=== PATIENT | male | born 1990 | race African-American/Black ===

== ENCOUNTER 2018-08-30 08:35 | Day surgery (SDC) | payer OTHER ==
[2018-08-29 16:59] LABS: Potassium 4.1 mmol/L (3.5-5.1)
[2018-08-29 17:08] LABS: Absolute Lymphocytes (CBC) 2.6 K/uL (0.7-4.9); Basophils % 0.9 % (0-1.3); Eosinophils % 3.1 % (0-4.4); Lymphocytes % 48.6 % (15.3-44.8); MPV 7.5 fL (7.6-11.3); Monocytes % 11.8 % (3.3-12.3); RBC Red Blood Cell Count 4.86 M/uL (4.33-5.43)
[2018-08-30] MEDS ORDERED: Ringers Lactate 1,000 ML IV ONE (09:05)
--- OUTSIDE RECORDS SUMMARY | 2018-08-30 09:13 | XMS REPORT | Clinical Summary ---
:1990 Author Organization [facility] Address [address] [place] [address] Care Team Providers Name Role Phone Asked, No Pcp Primary Care Provider Unavailable Allergies No Known Allergies Medications Medication Sig Dispensed Refills Start End Date Status Date darunavir/cobicistat Take by mouth 0 Active (PREZCOBIX ORAL) daily. mesalamine (PENTASA) Take 250 mg by 0 Active 250 mg CR capsule mouth 4 (four) times a day. predniSONE Take 1 tablet 30 tablet 0 09/06/19 Active (DELTASONE) 20 mg (20 mg total) 9 19 tablet by mouth daily for 30 days. acetaminophen-codein Take 1-2 15 tablet 0 08/31/19 e (TYLENOL WITH tablets by 8 18 CODEINE #3) 300-30 mouth every 6 mg per tablet (six) hours as needed for moderate pain for up to 5 days. cyclobenzaprine Take 1 tablet 20 tablet 0 09/25/19 (FLEXERIL) 10 mg (10 mg total) 8 18 tablet by mouth 2 (two) times a day as needed for muscle spasms for up to 30 days. predniSONE Take 2 tablets 28 tablet 0 01/27/20 (DELTASONE) 20 mg (40 mg total) 8 18 tablet by mouth daily for 14 days. mesalamine (PENTASA) Take 500 mg by 0 01/12/20 Discontinued 250 mg CR capsule mouth 4 (four) 18 times a day. Info obtained from Kat GRAY from Dr. Anthony's office, patient's GI doctor who prescribed this medication FINANCIAL ANALYST. mesalamine (PENTASA) Take 500 mg by 0 10/25/20 Discontinued 500 MG CR capsule mouth 4 (four) 18 times a day. Info obtained from Kat GRAY from Dr. Anthony's office, phone # [phone], patient's GI doctor who prescribed this medication FINANCIAL ANALYST. mesalamine (PENTASA) Take 1 capsule 120 capsule 0 01/13/20 Discontinued 500 MG CR capsule (500 mg total) 8 18 by mouth 4 (four) times a day for 30 days. mesalamine (PENTASA) Take 4 capsules 240 capsule 0 02/12/20 500 MG CR capsule (2,000 mg 8 18 total) by mouth 2 (two) times a day for 30 days. valACYclovir Take 1 tablet 21 tablet 0 08/06/19 Discontinued (VALTREX) 1000 MG (1,000 mg 9 19 tablet total) by mouth 3 (three) times a day for 7 days. predniSONE Take 30 mg 35 tablet 0 08/06/19 Discontinued (DELTASONE) 10 mg orally bid for 9 tablet days 1-7 then 15 mg bid for days 8-14, then 5 mg on days 15-21. acetaminophen-codein Take 1 tablet 20 tablet 0 07/31/19 e (TYLENOL WITH by mouth every 12 07 CODEINE #3) 300-30 6 (six) hours mg per tablet as needed for moderate pain for up to 5 days. valACYclovir Take 1 tablet 21 tablet 0 08/13/19 (VALTREX) 1000 MG (1,000 mg 9 19 tablet total) by mouth 3 (three) times a day for 7 days. Active Problems Problem Noted Date Abdominal pain 01/10/2018 Encounters Date Type Specialty Care Team Description 08/02/2018 - Emergency General Internal Rosalba Stoner Abdominal pain, 08/04/2018 Medicine MD Cindy vomiting, and diarrhea Diana Naidu, (Primary Dx) 07/25/2018 Emergency Emergency Medicine Jackie Montejo Herpes zoster without MD Mckenzie complication (Primary Dx) 07/25/2018 Travel 05/17/2018 Emergency Emergency Medicine Souleymane Jones Myalgia ( Primary Dx); MD MAGDI Fever, unspecified fever cause 03/30/2018 Emergency Emergency Medicine Nancy Davenport, Contusion of right DO index finger without damage to nail, initial encounter (Primary Dx) 01/10/2018 - Emergency General Internal PierceThomas, Abdominal pain, 01/12/2018 Medicine MD unspecified abdominal Korimilli, Luis Carlos, location (Primary Dx) Kathleen Mckeon MD 09/26/2017 Emergency Emergency Medicine Braeden Stark Sprain of carpal joint MD Efren of left wrist, initial encounter (Primary Dx) after 08/29/2017 Family History Medical History Relation Name Comments Crohn's disease Mother Hypertension Mother Relation Name Status Comments Mother Alive Crohn's Sister Alive crohn's Social History Tobacco Use Types Packs/Day Years Used Date Never Smoker Smokeless Tobacco: Never Used Alcohol Use Drinks/Week oz/Week Comments Yes 4 Standard drinks or equivalent 2.4 2 x per week Sex Assigned at Date Recorded Not on file Job Start Date Occupation Industry Not on file Not on file Not on file Travel History Travel Start Travel End No recent travel history available. Last Filed Vital Signs Vital Sign Reading Time Taken Blood Pressure 139/79 08/05/2018 11:45 AM CDT Pulse 73 08/05/2018 11:45 AM CDT Temperature 36.6 C (97.8 F) 08/05/2018 11:45 AM CDT Respiratory Rate 16 08/05/2018 11:45 AM CDT Oxygen Saturation 97% 08/05/2018 11:45 AM CDT Inhaled Oxygen Concentration - - Weight 59 kg (130 lb) 07/25/2018 11:09 AM CDT Height 172.7 cm (5' 8") 08/02/2018 12:55 PM CDT Body Mass Index 19.2 07/25/2018 11:09 AM CDT Plan of Treatment Health Maintenance Due Date Last Done Comments INFLUENZA VACCINE 10/19/2018 Procedures Procedure Name Priority Date/Time Associated Comments Diagnosis MANUAL DIFFERENTIAL Routine 08/05/2018 2:51 Results for this AM CDT procedure are in the results section. ESTIMATED GFR Routine 08/05/2018 2:51 Results for this AM CDT procedure are in the results section. CBC WITH PLATELET AND Routine 08/05/2018 2:51 Results for this DIFFERENTIAL AM CDT procedure are in the results section. BASIC METABOLIC PANEL Routine 08/05/2018 2:51 Results for this AM CDT procedure are in the results section. ESTIMATED GFR Routine 08/04/2018 12:41 Results for this AM CDT procedure are in the results section. BASIC METABOLIC PANEL Routine 08/04/2018 12:41 Results for this AM CDT procedure are in the results section. HC COMPLETE BLD COUNT Routine 08/04/2018 12:41 Results for this W/AUTO DIFF AM CDT procedure are in the results section. CT ABDOMEN PELVIS W STAT 08/02/2018 6:03 Results for this CONTRAST PM CDT procedure are in the results section. ESTIMATED GFR STAT 08/02/2018 5:00 Results for this PM CDT procedure are in the results section. CD 4 SUBSET Routine 08/02/2018 5:00 Results for this PM CDT procedure are in the results section. LIPASE LEVEL STAT 08/02/2018 5:00 Results for this PM CDT procedure are in the results section. MAGNESIUM LEVEL STAT 08/02/2018 5:00 Results for this PM CDT procedure are in the results section. COMPREHENSIVE STAT 08/02/2018 5:00 Results for this METABOLIC PANEL PM CDT procedure are in the results section. HC COMPLETE BLD COUNT STAT 08/02/2018 5:00 Results for this W/AUTO DIFF PM CDT procedure are in the results section. URINALYSIS SCREEN AND Routine 05/17/2018 3:07 Results for this MICROSCOPY, WITH PM [employer]IC[employer] procedure are in REFLEX TO CULTURE the results section. RESPIRATORY PATHOGEN Routine 05/17/2018 3:07 Results for this PANEL PM [employer] procedure are in the results section. INFLUENZA ANTIGEN Routine 05/17/2018 3:07 Results for this TEST, REFLEX NEGATIVE PM [employer] procedure are in TO RPP the results section. XR CHEST 2 VW STAT 05/17/2018 3:06 Results for this PM [employer] procedure are in the results section. URINE CULTURE Routine 05/17/2018 3:04 Results for this PM [employer] procedure are in the results section. ECG 12-LEAD STAT 05/17/2018 2:36 Results for this PM [employer] procedure are in the results section. ESTIMATED GFR STAT 05/17/2018 2:27 Results for this PM [employer] procedure are in the results section. HC COMPLETE BLD COUNT STAT 05/17/2018 2:27 Results for this W/AUTO DIFF PM [employer] procedure are in the results section. COMPREHENSIVE STAT 05/17/2018 2:27 Results for this METABOLIC PANEL PM [employer] procedure are in the results section. XR FINGER 2+ VW RIGHT STAT 03/30/2018 4:25 Results for this PM [employer] procedure are in the results section. C-REACTIVE PROTEIN Routine 01/11/2018 12:00 Results for this PM CDT procedure are in the results section. SEDIMENTATION RATE Routine 01/11/2018 12:00 Results for this PM CDT procedure are in the results section. MANUAL DIFFERENTIAL Routine 01/11/2018 5:17 Results for this AM CDT procedure are in the results section. ESTIMATED GFR Routine 01/11/2018 5:17 Results for this AM CDT procedure are in the results section. LIPASE LEVEL Routine 01/11/2018 5:17 Results for this AM CDT procedure are in the results section. COMPREHENSIVE Routine 01/11/2018 5:17 Results for this METABOLIC PANEL AM CDT procedure are in the results section. CBC WITH PLATELET AND Routine 01/11/2018 5:17 Results for this DIFFERENTIAL AM CDT procedure are in the results section. CT ABDOMEN PELVIS W STAT 01/10/2018 7:34 Results for this CONTRAST PM CDT procedure are in the results section. ESTIMATED GFR STAT 01/10/2018 6:22 Results for this PM CDT procedure are in the results section. URINALYSIS SCREEN AND Routine 01/10/2018 6:22 Results for this MICROSCOPY, WITH PM CDT procedure are in REFLEX TO CULTURE the results section. LIPASE LEVEL STAT 01/10/2018 6:22 Results for this PM CDT procedure are in the results section. COMPREHENSIVE STAT 01/10/2018 6:22 Results for this METABOLIC PANEL PM CDT procedure are in the results section. HC COMPLETE BLD COUNT STAT 01/10/2018 6:22 Results for this W/AUTO DIFF PM CDT procedure are in the results section. URINE CULTURE Routine 01/10/2018 6:22 Results for this PM CDT procedure are in the results section. XR WRIST 3+ VW LEFT STAT 09/26/2017 10:13 Results for this AM CDT procedure are in the results section. XR FOREARM 2 VW LEFT STAT 09/26/2017 10:13 Results for this AM CDT procedure are in the results section. after 08/29/2017 Results Estimated GFR (08/05/2018 2:51 AM CDT)Only the most recent of6 resultswithin the time period is included. Estimated GFR >=90 mL/min/1.73 [facility] Comment: m2 [place] CatergoryUnitsInterpretation [facility]OSPITAL G1 >=90 Normal or high G2 60-89Mildly decreased [id number] to moderately decreased X5e42-21Qjoycmjocl to severely decreased G4 15-29Severely decreased G5 <15Kidney failure The eGFR was calculated using the Chronic Kidney Disease Epidemiology Collaboration (CKD-EPI) equation. Interpretation is based on recommendations of the National Kidney Foundation-Kidney Disease Outcomes Quality Initiative (NKF-KDOQI) published in 2014. Specimen Plasma specimen Performing Organization Address City/[facility] Cent[facility]ode Phone Number [facility] [id number] [place] [address] Manual differential (08/05/2018 2:51 AM CDT)Only the most recent of2 resultswithin the time period is included. Manual differential PERFORMED [facility] Neutrophils 69.0 39.0 - 69.0 % [facility] Lymphocytes 22.0 (L) 25.0 - 45.0 % [facility] Monocytes 10.0 0.0 - 10.0 % [facility] Eosinophils 0.0 0.0 - 5.0 % [facility] Basophils 0.0 0.0 - 1.0 % [facility] Reactive lymphocytes Few [facility] Platelet slide review Lewis adequate [facility] Toxic granulation Slight [facility] Enlarged platelets Moderate (A) [facility] Smudge cells Few [facility] Giant platelets Occasional [facility] Specimen Performing Organization Address [facility] Centercode Phone Number [facility] [id number] [place] [address] CBC with platelet and differential (08/05/2018 2:51 AM CDT)Only the most recent of6 resultswithin the time period is included. WBC 10.3 4.5 - 11.0 k/uL [facility] RBC 4.18 (L) 4.40 - 6.00 m/uL [facility] HGB 11.8 (L) 14.0 - 18.0 g/dL [facility] HCT 36.2 (L) 41.0 - 51.0 % [facility] MCV 86.6 82.0 - 100.0 fL [facility] MCH 28.2 27.0 - 34.0 pg [facility] MCHC 32.6 31.0 - 37.0 g/dL [facility] RDW - SD 43.4 37.0 - 55.0 fL [facility] MPV 9.0 6.9 - 11.0 fL [facility] Platelet count 291 150 - 400 K/uL [facility] Nucleated RBC 0.00 /100 WBC [facility] Neutrophils 69.0 39.0 - 69.0 % [facility] Lymphocytes 22.0 (L) 25.0 - 45.0 % [facility] Monocytes 10.0 0.0 - 10.0 % [facility] Eosinophils 0.0 0.0 - 5.0 % [facility] Basophils 0.0 0.0 - 1.0 % [facility] Specimen Blood Performing Organization Address City/State/Zipcode Phone Number [facility] [address] [place] [address] AND GENOMIC MEDICINE [facility] [address] [place] [address] HOSPITAL Basic metabolic panel (08/05/2018 2:51 AM CDT)Only the most recent of2 resultswithin the time period is included. Sodium 143 135 - 148 mEq/L [facility] Potassium 4.1 3.5 - 5.0 mEq/L [facility] Chloride 106 98 - 112 mEq/L [facility] CO2 30 24 - 31 mEq/L [facility] Anion gap 7@ANIO 7 - 15 mEq/L [facility] BUN 9 6 - 20 mg/dL [facility] Creatinine 0.66 (L) 0.70 - 1.20 mg/dL [facility] Glucose 146 (H) 65 - 99 mg/dL [facility] Calcium 8.6 8.3 - 10.2 mg/dL [facility] Specimen Plasma specimen Performing Organization Address City/State/Zipcode Phone Number [facility] [address] [place] [address] AND [facility]OMIC MEDICINE [facility] [address] Abdomen Pelvis W Contrast (08/02/2018 6:03 PM CDT)Only the most recent of2 resultswithin the time period is included. Specimen Narrative Performed At EXAMINATION:CT ABDOMEN PELVIS W [facility]AST [facility] CLINICAL HISTORY:RLQ abd painvomitingbloody diarrhea. Hx Crohn's TECHNIQUE: Multiple axial images of the abdomen and pelvis were obtained following intravenous administration of iodinated contrast. Sagittal and coronal computerized reformatted images were also obtained.Automatic exposure control and iterative reconstruction techniques used to reduce dose. COMPARISON:None. FINDINGS: The liver, spleen, pancreas, adrenals and kidneys are within normal limits. The gallbladder has been removed. No intra or extrahepatic ductal dilatation is present The small bowel is unremarkable No evidence of appendicitis Large amount retained stool in colon, constipation is suspected IMPRESSION: No evidence of appendicitis Large amount retained stool in colon, constipation is suspected [id number] Procedure Note Hm Interface, Radiology Results Incoming - 08/02/2018 6:13 PM CDT EXAMINATION: CT ABDOMEN PELVIS W CONTRAST CLINICAL HISTORY: RLQ abd pain vomiting bloody diarrhea. Hx Crohn's TECHNIQUE: Multiple axial images of the abdomen and pelvis were obtained following intravenous administration of iodinated contrast. Sagittal and coronal computerized reformatted images were also obtained.Automatic exposure control and iterative reconstruction techniques used to reduce dose. COMPARISON: None. FINDINGS: The liver, spleen, pancreas, adrenals and kidneys are within normal limits. The gallbladder has been removed. No intra or extrahepatic ductal dilatation is present The small bowel is unremarkable No evidence of appendicitis Large amount retained stool in colon, constipation is suspected IMPRESSION: No evidence of appendicitis Large amount retained stool in colon, constipation is suspected [id number] Performing Organization Address City/State/Zipcode Phone Number [facility] [address] [place] [address] CD 4 subset (08/02/2018 5:00 PM CDT) CD4% 20 (L) 37 - 57 % [facility] CD4 absolute count 666 488 - 1,340 ul [facility] CD4 subset See link below [facility] for PDF Lab HOSPITAL ReportComment: Specimen Blood Performing Organization Address City/State/Zipcode Phone Number [facility] DEPARTMENT OF PATHOLOGY AND [address] [place] [address] [facility] [address] [place] [address] [facility] Magnesium level (08/02/2018 5:00 PM CDT) Magnesium 2.0 1.6 - 2.6 mg/dL [facility] Specimen Plasma specimen Performing Organization Address City/[facility]/Zipcode Phone Number [facility] [id number] [place] [address] Lipase level (08/02/2018 5:00 PM CDT)Only the most recent of3 resultswithin the time period is included. Lipase 70 (H) 13 - 60 U/L [facility] Specimen Plasma specimen Performing Organization Address City/[facility]/Zipcode Phone Number [facility] [phone] [place] [address] Comprehensive metabolic panel (08/02/2018 5:00 PM CDT)Only the most recent of4 resultswithin the time period is included. Sodium 138 135 - 148 mEq/L [facility] Potassium 4.2 3.5 - 5.0 mEq/L [facility] Chloride 101 98 - 112 mEq/L [facility] CO2 29 24 - 31 mEq/L [facility] Anion gap 8@ANIO 7 - 15 mEq/L [facility] BUN 7 6 - 20 mg/dL [facility] Creatinine 0.77 0.70 - 1.20 [facility] mg/dL [facility] Glucose 95 65 - 99 mg/dL [facility] Calcium 9.0 8.3 - 10.2 mg/dL [facility] Protein 9.0 (H) 6.3 - 8.3 g/dL [facility] Albumin 4.4 3.5 - 5.0 g/dL [facility] A/G ratio 1.0 0.7 - 3.8 [facility] Alkaline phosphatase 78 40 - 129 U/L [facility] AST 23 10 - 50 U/L [facility] ALT 27 5 - 50 U/L [facility] Total bilirubin 0.3 0.2 - 1.2 mg/dL [facility] Specimen Plasma specimen Performing Organization Address City/[facility]/Zipcode Phone Number [facility] [address] [place] [address] AND [facility] [id number] [place] [address] HOSPITAL Respiratory pathogen panel (05/17/2018 3:07 PM [employer]) [facility] Respiratory Negative for all pathogens tested: ONA pathogen panel Negative for Adenovirus [facility] Negative for Coronavirus HKU1 [facility] Negative for Coronavirus NL63 Negative for Coronavirus 229E Negative for Coronavirus OC43 Negative for Human Metapneumovirus Negative for Rhinovirus/Enterovirus Negative for Influenza A Negative for Influenza A/H1 Negative for Influenza A/H3 Negative for Influenza A/H1-2009 Negative for Influenza B Negative for Parainfluenza Virus 1 Negative for Parainfluenza Virus 2 Negative for Parainfluenza Virus 3 Negative for Parainfluenza Virus 4 Negative for Respiratory Syncytial Virus Negative for Bordetella pertussis Negative for Chlamydophila pneumoniae Negative for Mycoplasma pneumoniae This real-time PCR assay detects the presence of nucleic acids (RNA or DNA) for the respiratory pathogens listed. A result of "Not-detected" does not exclude the possibility of the presence of one or more pathogens at concentrations less than the detectable limits of the assay. Comment: Specimen Information Specimen Source: Nares Specimen Site: Right Specimen Nares - Right Performing Organization Address City/State/Zipcode Phone Number [facility] DEPARTMENT OF PATHOLOGY AND [address] [place] [address] [address] Urinalysis screen and microscopy, with reflex to culture (05/17/2018 3:07 PM [employer]ER)Only the most recent of2 resultswithin the time period is included. Pathologist [facility] Specimen site Clean catch [facility] Color, UA Yellow [facility] Appearance, UA Clear [facility] Specific gravity, 1.015 1.001 - 1.030 [facility] pH, UA 5.0 5.0 - 9.0 [facility] Protein, UA Negative Negative [facility] Glucose, UA Negative Negative [facility] Ketones, UA Negative Negative [facility] Bilirubin, UA Negative Negative [facility] Blood, UA Negative Negative [facility] Nitrite, UA Negative Negative [facility] Urobilinogen, UA <2.0 <2.0 E.U./dL [facility] Leukocyte esterase, Negative Negative [facility] WBC, UA 1 0 - 1 /HPF [facility] RBC, UA 1 0 - 5 /HPF [facility] Bacteria, UA None seen None seen [facility] Yeast, UA None seen [facility] Yeast with None seen [facility] pseudohyphae, UA [facility] Specimen Urine Performing Organization Address City/[facility] Centercoca Phone Number [facility] [id number] [place] [address] Influenza antigen test, reflex negative to RPP (05/17/2018 3:07 PM [employer]) Influenza antigen Negative for Influenza A/B antigen. [facility] Comment: [place] Specimen Information HOSPITAL Specimen Source: Nares Specimen Site: Right Specimen Nares - Right Performing Organization Address City/[facility] Centercode Phone Number [facility] [phone] [place] [address] XR Chest 2 Vw (05/17/2018 3:06 PM [employer]) Specimen Narrative Performed At EXAMINATION:XR CHEST 2 VW [facility] CLINICAL HISTORY:fever COMPARISON:None. FINDINGS: Two views of the chest demonstrate normal cardiomediastinal silhouette. Pulmonary vasculature is within normal limits. Both lungs are clear. No pleural disease is identified. Regional osseous structures is unremarkable. IMPRESSION: No radiographic evidence of acute cardiopulmonary process or active disease of the chest. [id number] Procedure Note Hm Interface, Radiology Results Incoming - 05/17/2018 3:10 PM [employer]ER EXAMINATION: XR CHEST 2 VW CLINICAL HISTORY: fever COMPARISON: None. FINDINGS: Two views of the chest demonstrate normal cardiomediastinal silhouette. Pulmonary vasculature is within normal limits. Both lungs are clear. No pleural disease is identified. Regional osseous structures is unremarkable. IMPRESSION: No radiographic evidence of acute cardiopulmonary process or active disease of the chest. [id number] Performing Organization Address City/State/Zipcode Phone Number [facility] [address] [place] [address] Urine culture (05/17/2018 3:04 PM [employer]ICER)Only the most recent of2 resultswithin the time period is included. Urine culture SEE COMMENTComment: [facility] Bacteriuria screen [facility] negative. Specimen Performing Organization Address City/[facility]/Zipcode Phone Number [facility] [address] [place] [address] AND GENOMIC MEDICINE [facility] [address] [place] [address] HOSPITAL ECG 12 lead (05/17/2018 2:36 PM [employer]) Ventricular rate 69 [facility] Atrial rate 69 [facility] LA interval 130 [facility] QRSD interval 82 [facility] QT interval 352 [facility] QTC interval 377 [facility] P axis 1 49 [facility] QRS axis 1 85 [facility] T wave axis 54 [facility] EKG impression Normal sinus [facility] MUSE rhythm-Early repolarization-Normal ECG-No previous ECGs available-Electronicall y Signed By Dustin Ardon MD (2024) on 05/18/2018 5:13:59 PM Specimen Narrative Performed At Performing Organization Address [facility]/Zipcode Phone Number [facility] MUSE [address] [place] [address] XR Finger 2+ Vw Right (03/30/2018 4:25 PM [employer]ICER) Specimen Narrative Performed At EXAM:XR FINGER 2VW RIGHT [facility] CLINICAL:right index finger crush injury withdoor COMPARISON:None. IMPRESSION: 1.No acute fracture or dislocation. 2.Joint spaces are well-maintained. 3.Unremarkable soft tissues. [id number] Procedure Note Interface, Radiology Results Incoming - 03/30/2018 4:32 PM JUVENILE JUSTICE OFFICER EXAM: XR FINGER 2 VW RIGHT CLINICAL: right index finger crush injury with door COMPARISON: None. IMPRESSION: 1. No acute fracture or dislocation. 2. Joint spaces are well-maintained. 3. Unremarkable soft tissues. [id number] Performing Organization Address City/[facility]/Zipcode Phone Number [facility] [address] [place] [address] Sedimentation rate (01/11/2018 12:00 PM CDT) Sedimentation rate 7 0 - 10 mm/hr [facility]OMIC MEDICINE Specimen Blood Performing Organization Address City/[facility]/Zipcode Phone Number [facility] [address] [place] [address] AND GENOMIC MEDICINE C-reactive protein (01/11/2018 12:00 PM CDT) CRP <0.30 0.00 - 0.50 mg/dL [facility] DEPARTMENT OF PATHOLOGY AND GENOMIC MEDICINE Specimen Plasma specimen Performing Organization Address [facility] Phone Number [facility] DEPARTMENT OF PATHOLOGY AND [address] [place] [address] GENOMIC MEDICINE XR Wrist 3+ Vw Left (09/26/2017 10:13 AM CDT) Specimen Narrative Performed At EXAMINATION:XR WRIST 3VW LEFT [facility] CLINICAL HISTORY:Fall on outstretched hand. COMPARISON:None available at this time. IMPRESSION: 1. No fracture, malalignment, or osseous destructive lesion of the left wrist. 2. Joint spaces are maintained. No degenerative changes. 3. Soft tissues are unremarkable. [facility][id number] Procedure Note Interface, Radiology Results Incoming - 09/26/2017 10:23 AM CDT EXAMINATION: XR WRIST 3 VW LEFT CLINICAL HISTORY: Fall on outstretched hand. COMPARISON: None available at this time. IMPRESSION: 1. No fracture, malalignment, or osseous destructive lesion of the left wrist. 2. Joint spaces are maintained. No degenerative changes. 3. Soft tissues are unremarkable. [id number] Performing Organization Address City/[facility]/Zipcode Phone Number [facility] [address] [place] [address] XR Forearm 2 Vw Left (09/26/2017 10:13 AM CDT) Specimen Narrative Performed At EXAMINATION:XR FOREARM 2 VW LEFT [facility] CLINICAL HISTORY:Fall on outstretched hand. COMPARISON:None available at this time. IMPRESSION: 1. No fracture, malalignment, or osseous destructive lesion of the left forearm. 2. Joint spaces are maintained. No degenerative changes. 3. Soft tissues are unremarkable. [facility]-[id number] Procedure Note Hm Interface, Radiology Results Incoming - 09/26/2017 10:23 AM CDT EXAMINATION: XR FOREARM 2 VW LEFT CLINICAL HISTORY: Fall on outstretched hand. COMPARISON: None available at this time. IMPRESSION: 1. No fracture, malalignment, or osseous destructive lesion of the left forearm. 2. Joint spaces are maintained. No degenerative changes. 3. Soft tissues are unremarkable. [facility]-[id number] Performing Organization Address City/State/[facility] Phone Number [facility]ASH [facility] [address] [place] [address] after 08/29/2017 Insurance Payer Benefit Plan / Group Subscriber ID Effective Phone Address Type Dates TPL [id number] xxxxxxxxxx 2017-Pre TPL sent [employer] xxxxxxxx 2017-Pre Commercial MISC sent [facility] xxxxxxxxx 2017-Pr HMO/PPO CHOICE/CHOICE + esent Erickson Allen [employer] Party Self 1990 [phone] [place] [address] Advance Directives Patient has advance care planning documents on file. For more information, please contact:Raymundo Carrion[address] [place] [address]
[2018-08-30] MEDS ORDERED: BUPIVACAINE 0.5% PF 10 ML VIAL ONE (09:35)
[2018-08-30] MEDS ORDERED: PROPOFOL 200 MG/20 ML VIAL IV ONE ×2 (09:44→11:07)
[2018-08-30] MEDS ORDERED: MIDAZOLAM HCL 2 MG/2 ML INJ ONE ×2 (09:45→11:07)
[2018-08-30] MEDS ORDERED: LIDOCAINE 2% MPF 5 ML VIAL ONE ×2 (09:45→11:07)
[2018-08-30] MEDS ORDERED: CEFAZOLIN/SWI 1gm 1 GM/10 ML SYR ONE (09:46)
[2018-08-30] MEDS ORDERED: FENTANYL CITR 250 MCG/5 ML ONE (09:46)
[2018-08-30] MEDS ORDERED: ONDANSETRON 4 MG/2 ML VIAL ONE ×2 (09:48→11:07)
[2018-08-30] MEDS ORDERED: FENTANYL CITR 100 MCG/2 ML ONE (11:07)
[2018-08-30] MEDS: HYDROMORPHONE HCL 1 MG/ML INJ ONE ×2 (11:56→12:01)
[2018-08-30] MEDS: HYDROMORPHONE HCL 2 MG/ML inj ONE ×2 (12:05→12:10)
[2018-08-30] MEDS: MEPERIDINE HCL 50 MG/ML AMP ONE ×2 (12:20→12:25)
[2018-08-30] MEDS ORDERED: MEPERIDINE HCL 50 MG/ML AMP ONE (12:44)
[2018-08-30] MEDS ORDERED: CODEINE 30MG/APAP 300MG TAB ONE (13:42)
[2018-08-30 13:44] VITALS: TEMP 97.9; O2SAT 100
[2018-08-30 14:10] VITALS: BP 118/69
--- NOTE | 2018-09-07 15:33 | DS ---
Date of Discharge: 08/30/2018 Diagnosis: Perianal mass. Procedures: Examination under anesthesia, anoscopy, proctoscopy. Excisional biopsy of perianal mass . Disposition: Home. Discharge Instructions: Activity as tolerated. No heavy lifting. Sitz bath 4 times a day and after every bowel movement. For medications see orders. YASH/MARCIE Voice ID: [id number] Report ID: [id number]
--- NOTE | 2018-09-07 15:33 | OP ---
Surgeon: Krishan Stark MD Preoperative Diagnosis: Perianal mass. Postoperative Diagnosis: Perianal mass. Procedures: Examination under anesthesia, anoscopy, rigid proctoscopy. Excisional biopsy of periana l mass. Anesthesia: Local plus general. Indications For Surgery: This is the case of a 28-year-old patient, seen recently by a gastroenterol ogist and during evaluation found to have a perianal mass. The patient sent to us for excision. The benefits, alternatives, and risks of EUA, anoscopy, rigid proctoscopy, and excisional biopsy of elina anal mass fully explained to the patient, which include but are not limited to infection, bleeding, d amage to adjacent structures, anesthesia complication, recurrence, NC, and even . He also under stands this may not relieve any symptoms. He might need more than one surgical intervention. He als o understands the importance of following up after surgery since if this is a mass depends on the deshawn ology of cancer versus infectious, we still have to do a followup in the future. He signed the conse nt. The area of concern is about 1.5 x 1 cm. Description Of Procedure: The patient was brought to the operating room, placed in supine position. Anesthesia was done without complication. The patient was placed in lithotomy position after proper protection. Time-out was called. The area was prepped and draped in a sterile fashion. Rectal exa mination was done to identify the lesion present, which was clearly seen in front of the area of the anal verge. We put a rigid sigmoidoscope, difficult to see much past 10 cm since the patient has a l arge amount of stools present. Then we put an anoscope in the area with the window on the side, and we noticed this perianal lesion. It does not seem to be in the rectum, although once again, stools i s making it difficult to visualize that area. That mass consists of many multi-pedunculated lesions, altogether about 1 x 1.5 cm. We made a wedge incision in the area and removed the lesions, and area was irrigated. The anal sphincter and the hemorrhoids were protected at all times. The area was le ft to heal by secondary intention. The area was irrigated. Hemostasis was checked with no bleeding. Injected local anesthetic. The patient tolerated the procedure well. The patient was sent to [facility] in stable condition. YASH/MARCIE Voice ID: [id number] Report ID: [id number]
== END 2018-08-30 14:16 | disposition home or self-care (01) ==
LOC: OR 08:35
PROVIDERS: ATTEND Surgery
PROC: 0DJD8ZZ Inspection of Lower Intestinal Tract, Via Natural or Artificial Opening Endoscopic (ICD-10-PCS; 2018-08-30)
PROC: 0DBQ3ZX Excision of Anus, Percutaneous Approach, Diagnostic (ICD-10-PCS; principal; 2018-08-30 11:15)
DX: A63.0 Anogenital (venereal) warts (principal); K64.4 Residual hemorrhoidal skin tags
CPT/HCPCS: 36415; 80048; 85025; 88305; J0690; J1170; J2175; J2250; J2405; J2704; J3010

== ENCOUNTER 2019-07-21 22:40 | Emergency (ER) | payer OTHER ==
--- NOTE | 2019-07-22 00:33 | ER ---
Nurse's Notes [facility] Name: Erickson Allen Age: 29 yrs Sex: Male : 1990 Arrival Date: 07/21/2019 Time: 22:44 Bed 11 Private MD: Diagnosis: Streptococcal pharyngitis Presentation: 07/20 22:54 Chief complaint: Patient states: "I have a cough, my chest hurts, I'm feeling tired, lp1 and I don't have any taste or sense of smell"; States symptoms began yesterday; Denies fever. Coronavirus screen: Patient reports a cough. Patient reports shortness of breath or difficulty breathing. Patient denies measured and/or subjective temperature greater than 100.4F prior to today's visit. Patient denies travel on a cruise ship or to a country the [facility] currently lists as an affected area. Patient denies contact with known and/or suspected case of COVID-19. Ebola Screen: No symptoms or risks identified at this time. Initial Sepsis Screen: Does the patient meet any 2 criteria? No. Patient's initial sepsis screen is negative. Does the patient have a suspected source of infection? No. Patient's initial sepsis screen is negative. Risk Assessment: Do you want to hurt yourself or someone else? Patient reports no desire to harm self or others. Onset of symptoms was July 20, 2019. 22:54 Method Of Arrival: Ambulatory lp1 22:54 Acuity: SARAH 4 lp1 Historical: - Allergies: 22:58 No Known Allergies; lp1 - Home Meds: 22:58 prescobix for AIDS/HIV [Active]; lp1 - PMHx: 22:58 Crohn's; HIV; lp1 - PSHx: 22:58 Cholecystectomy; Appendectomy; Knee surgery; lp1 - Immunization history:: Adult Immunizations up to date. - Social history:: Smoking status: Patient denies any tobacco usage or history of. Screenin:14 Abuse screen: Denies threats or abuse. Denies injuries from another. Nutritional lp1 screening: No deficits noted. Tuberculosis screening: No symptoms or risk factors identified. Fall Risk None identified. Assessment: 23:00 General: Appears in no apparent distress. comfortable, Behavior is calm, cooperative. lp1 Pain: Complains of pain in thoat, chest Quality of pain is described as sharp, Pain began 1 day ago. Neuro: Level of Consciousness is awake, alert, obeys commands, Oriented to person, place, time, situation. Cardiovascular: Patient's skin is warm and dry. Respiratory: Airway is patent Trachea midline Respiratory effort is even, unlabored, Breath sounds are clear bilaterally. GI: No signs and/or symptoms were reported involving the gastrointestinal system. : No signs and/or symptoms were reported regarding the genitourinary system. EENT: Throat is reddened has enlarged tonsils Reports lack of taste and smell. Derm: Skin is intact, Skin is dry, Skin is normal. Musculoskeletal: No deficits noted. Vital Signs: 22:54 BP 146 / 85; Pulse 88; Resp 16; Temp 98.1(O); Pulse Ox 98% on R/A; Weight 68.04 kg (R); lp1 Height 5 ft. 8 in. (172.72 cm); 22:54 Body Mass Index 22.81 (68.04 kg, 172.72 cm) lp1 ED Course: 22:44 Patient arrived in ED. fj1 22:46 [facility]C [facility] kb 22:46 Zia Schaeffer MD is Attending Physician. kb 22:57 Triage completed. lp1 22:57 Arm band placed on left wrist. lp1 23:02 Adela Claire, RN is Primary Nurse. lp1 23:02 Flu and/or RSV swab sent to lab. Strep swab sent to lab. lp1 23:16 Patient has correct armband on for positive identification. lp1 23:40 Chest Single View XRAY In Process Unspecified. EDMS 0503 00:58 No provider procedures requiring assistance completed. Patient did not have IV access lp1 during this emergency room visit. Administered Medications: 00:55 Drug: Bicillin L-A 1.2 million units Route: IM; Site: right gluteus; lp1 01:01 Follow up: Response: Medication administered at discharge. lp1 Outcome: 00:31 Discharge ordered by . kb 01:01 Discharged to home ambulatory. lp1 01:01 Condition: good 01:01 Discharge instructions given to patient, Instructed on discharge instructions, follow up and referral plans. Demonstrated understanding of instructions, follow-up care. 01:01 Patient left the ED. lp1 Signatures: Dispatcher [employer] Gay Hubbard, MAINTENANCE SUPERINTENDENT-C MAINTENANCE SUPERINTENDENT-Adela West, RN RN lp1 Ivan Haney fj1
--- NOTE | 2019-07-22 00:33 | EDPHYS ---
Physician Documentation [facility] Name: Erickson Allen Age: 29 yrs Sex: Male : 1990 Arrival Date: 07/21/2019 Time: 22:44 Bed 11 Private MD: ED Physician Zia Schaeffer HPI: 07/20 23:26 This 29 yrs old Black Male presents to ER via Ambulatory with complaints of Cough, Sore kb Throat. 23:26 The patient or guardian reports cough, that is intermittent, described as mild, with no kb sputum. Onset: The symptoms/episode began/occurred yesterday. Severity of symptoms: At their worst the symptoms were mild, moderate, in the emergency department the symptoms are unchanged. Modifying factors: The symptoms are alleviated by nothing, the symptoms are aggravated by nothing. Associated signs and symptoms: Pertinent positives: chest pain, sore throat, Pertinent negatives: diarrhea, ear ache, fever, nausea, rhinorrhea, vomiting. The patient has not experienced similar symptoms in the past. The patient has not recently seen a physician. Pt reports cough, sore throat, chest pain, decreased taste and smell since yesterday. Denies fever. Historical: - Allergies: 22:58 No Known Allergies; lp1 - Home Meds: 22:58 prescobix for AIDS/HIV [Active]; lp1 - PMHx: 22:58 Crohn's; HIV; lp1 - PSHx: 22:58 Cholecystectomy; Appendectomy; Knee surgery; lp1 - Immunization history:: Adult Immunizations up to date. - Social history:: Smoking status: Patient denies any tobacco usage or history of. ROS: 23:22 Neck: Negative for injury, pain, and swelling, Abdomen/GI: Negative for abdominal pain, kb nausea, vomiting, diarrhea, and constipation, Back: Negative for injury and pain, MS/Extremity: Negative for injury and deformity, Skin: Negative for injury, rash, and discoloration, Neuro: Negative for headache, weakness, numbness, tingling, and seizure. 23:22 Constitutional: Positive for fever, Negative for body aches, chills, fatigue, malaise, poor PO intake, weight loss. 23:22 ENT: Positive for sore throat. 23:22 Cardiovascular: Positive for chest pain, Negative for edema, orthopnea, palpitations, paroxysmal nocturnal dyspnea. 23:22 Respiratory: Positive for cough, with no reported sputum, Negative for dyspnea on exertion, hemoptysis, orthopnea, pleurisy, shortness of breath, sputum production, wheezing. Exam: 23:25 Constitutional: This is a well developed, well nourished patient who is awake, alert, kb and in no acute distress. Head/Face: Normocephalic, atraumatic. Neck: Trachea midline, no thyromegaly or masses palpated, and no cervical lymphadenopathy. Supple, full range of motion without nuchal rigidity, or vertebral point tenderness. No Meningismus. Chest/axilla: Normal chest wall appearance and motion. Nontender with no deformity. No lesions are appreciated. Cardiovascular: Regular rate and rhythm with a normal S1 and S2. No gallops, murmurs, or rubs. Normal PMI, no JVD. No pulse deficits. Respiratory: Lungs have equal breath sounds bilaterally, clear to auscultation and percussion. No rales, rhonchi or wheezes noted. No increased work of breathing, no retractions or nasal flaring. Abdomen/GI: Soft, non-tender, with normal bowel sounds. No distension or tympany. No guarding or rebound. No evidence of tenderness throughout. Skin: Warm, dry with normal turgor. Normal color with no rashes, no lesions, and no evidence of cellulitis. MS/ Extremity: Pulses equal, no cyanosis. Neurovascular intact. Full, normal range of motion. Neuro: Awake and alert, GCS 15, oriented to person, place, time, and situation. Cranial nerves II-XII grossly intact. Motor strength 5/5 in all extremities. Sensory grossly intact. Cerebellar exam normal. Normal gait. 23:25 ENT: Posterior pharynx: Airway: normal, no evidence of obstruction, Tonsils: are normal in appearance, Uvula: normal, midline, swelling, is not appreciated, erythema, that is moderate. Vital Signs: 22:54 BP 146 / 85; Pulse 88; Resp 16; Temp 98.1(O); Pulse Ox 98% on R/A; Weight 68.04 kg (R); lp1 Height 5 ft. 8 in. (172.72 cm); 22:54 Body Mass Index 22.81 (68.04 kg, 172.72 cm) lp1 MDM: 23:00 Patient medically screened. kb 23:26 Data reviewed: vital signs, nurses notes. Data interpreted: Pulse oximetry: on room air kb is 98 %. Interpretation: normal. Counseling: I had a detailed discussion with the patient and/or guardian regarding: the historical points, exam findings, and any diagnostic results supporting the discharge/admit diagnosis, lab results, radiology results, the need for outpatient follow up, a family practitioner, to return to the emergency department if symptoms worsen or persist or if there are any questions or concerns that arise at home. 07/20 23:00 Order name: Flu; Complete Time: 00:30 kb 07/20 23:00 Order name: Strep; Complete Time: 00:30 kb 07/20 23:00 Order name: Chest Single View XRAY kb Administered Medications: 07/21 00:55 Drug: Bicillin L-A 1.2 million units Route: IM; Site: right gluteus; lp1 01:01 Follow up: Response: Medication administered at discharge. lp1 Disposition: 07/22/19 00:31 Discharged to Home. Impression: Streptococcal pharyngitis. - Condition is Stable. - Discharge Instructions: Strep Throat, [id number]. - Medication Reconciliation Form, Thank You Letter, Antibiotic Education, Prescription Opioid Use, Work release form form. - Follow up: Emergency Department; When: As needed; Reason: Worsening of condition. Follow up: Private Physician; When: 2 - 3 days; Reason: Recheck today's complaints, Continuance of care, Re-evaluation by your physician. Addendum: 07/24/2019 15:02 Co-signature as Attending Physician, Zia Schaeffer MD I agree with the assessment and c guo plan of care. Signatures: Dispatcher [employer] [facility] Gay Rehman, STONE SETTER-C ULYSSES-Zia Vera MD MD cha Pena, Laura, RN RN lp1 Corrections: (The following items were deleted from the chart) 07/21 01:01 00:31 07/22/2019 00:31 Discharged to Home. Impression: Streptococcal pharyngitis. lp1 Condition is Stable. Forms are Medication Reconciliation Form, Thank You Letter, Antibiotic Education, Prescription Opioid Use. Follow up: Emergency Department; When: As needed; Reason: Worsening of condition. Follow up: Private Physician; When: 2 - 3 days; Reason: Recheck today's complaints, Continuance of care, Re-evaluation by your physician. kb
[2019-07-22] MEDS ORDERED: PEN G BENZ LA 1.2MU/2ML SYRINGE IM ONE (00:58)
[2019-07-22 02:27] VITALS: BP 146/85; TEMP 98.1; O2SAT 98
--- NOTE | 2019-07-22 11:52 | RAD REPORT ---
EXAM DESCRIPTION: RAD - Chest Single View - 07/21/2019 11:39 pm CLINICAL HISTORY: COUGH Chest pain. COMPARISON: Chest Single View dated 10/20/2015; Abdomen Acute Series dated 10/09/2015; Chest Pa And Lat (2 Views) dated 10/06/2015; CHEST SINGLE VIEW dated 07/04/2012 FINDINGS: Portable technique limits examination quality. The lungs are grossly clear. The heart is normal in size. No displaced fractures. IMPRESSION: No acute intrathoracic process suspected.
== END 2019-07-22 01:01 | disposition home or self-care (01) ==
LOC: ER 22:40
DX: J02.0 Streptococcal pharyngitis (principal); Z21 Asymptomatic human immunodeficiency virus [HIV] infection status
CPT/HCPCS: 87081; 87804 ×2; 71045; 96372; 99283; J0561

== ENCOUNTER → 2023-03-28 | Emergency (ER) | payer SELFPAY ==
[~2023-03-28] MED LIST: AMOX/K CLAV 875 MG TAB ONE; CETIRIZINE HCL 5 MG TABLET ONE; FAMOTIDINE 20 MG TAB ONE; predniSONE 20 MG TAB ONE
--- NOTE | 2023-03-28 13:30 | EDPHYS ---
Physician Documentation [facility] Name: Erickson Allen Age: 33 yrs Sex: Male : 1990 Arrival Date: 03/28/2023 Time: 12:15 Bed IW9 Private MD: ED Physician Suzi Ward HPI: 03/28 16:40 This 33 yrs old Black Male presents to ER via Ambulatory with complaints of Ear Pain. snw 16:40 The patient presents with a fullness, hearing loss. The complaints affect the right snw ear. Onset: The symptoms/episode began/occurred 2 week(s) ago. Modifying factors: The symptoms are alleviated by nothing, the symptoms are aggravated by nothing. Severity of symptoms: At their worst the symptoms were moderate. It is unknown whether or not the patient has had similar symptoms in the past. The patient has not recently seen a physician. Historical: - Allergies: 13:06 No Known Drug Allergies; iw - PMHx: 13:06 Crohn's; HIV; iw - Immunization history:: Adult Immunizations up to date. - Social history:: Smoking status: Patient denies any tobacco usage or history of. ROS: 16:41 Constitutional: Negative for fever, chills, and weight loss, Eyes: Negative for injury, snw pain, redness, and discharge, Neck: Negative for injury, pain, and swelling, Cardiovascular: Negative for chest pain, palpitations, and edema, Respiratory: Negative for shortness of breath, cough, wheezing, and pleuritic chest pain, Abdomen/GI: Negative for abdominal pain, nausea, vomiting, diarrhea, and constipation, Back: Negative for injury and pain, : Negative for injury, bleeding, discharge, and swelling, MS/Extremity: Negative for injury and deformity, Skin: Negative for injury, rash, and discoloration, Neuro: Negative for headache, weakness, numbness, tingling, and seizure, Psych: Negative for depression, anxiety, suicide ideation, homicidal ideation, and hallucinations, 16:41 ENT: Positive for ear pain, hearing loss, Exam: 16:41 Constitutional: This is a well developed, well nourished patient who is awake, alert, snw and in no acute distress. Head/Face: Normocephalic, atraumatic. Eyes: Pupils equal round and reactive to light, extra-ocular motions intact. Lids and lashes normal. Conjunctiva and sclera are non-icteric and not injected. Cornea within normal limits. Periorbital areas with no swelling, redness, or edema. Neck: Trachea midline, no thyromegaly or masses palpated, and no cervical lymphadenopathy. Supple, full range of motion without nuchal rigidity, or vertebral point tenderness. No Meningismus. Chest/axilla: Normal chest wall appearance and motion. Nontender with no deformity. No lesions are appreciated. Cardiovascular: Regular rate and rhythm with a normal S1 and S2. No gallops, murmurs, or rubs. Normal PMI, no JVD. No pulse deficits. Respiratory: Lungs have equal breath sounds bilaterally, clear to auscultation and percussion. No rales, rhonchi or wheezes noted. No increased work of breathing, no retractions or nasal flaring. Abdomen/GI: Soft, non-tender, with normal bowel sounds. No distension or tympany. No guarding or rebound. No evidence of tenderness throughout. Back: No spinal tenderness. No costovertebral tenderness. Full range of motion. Skin: Warm, dry with normal turgor. Normal color with no rashes, no lesions, and no evidence of cellulitis. MS/ Extremity: Pulses equal, no cyanosis. Neurovascular intact. Full, normal range of motion. Neuro: Awake and alert, GCS 15, oriented to person, place, time, and situation. Cranial nerves II-XII grossly intact. Motor strength 5/5 in all extremities. Sensory grossly intact. Cerebellar exam normal. Normal gait. Psych: Awake, alert, with orientation to person, place and time. Behavior, mood, and affect are within normal limits. 16:41 ENT: External ear(s): are unremarkable, Ear canal(s): are normal, TM's: fluid levels, on the right, Nose: is normal, Mouth: is normal, Posterior pharynx: is normal, Vital Signs: 13:03 BP 136 / 100; Pulse 70; Resp 16; Temp 98; Pulse Ox 99% ; Weight 74.84 kg; Height 5 ft. iw 10 in. ; 13:03 Body Mass Index 23.67 (74.84 kg, 177.8 cm) iw MDM: 13:26 Patient medically screened. gb1 13:39 Differential diagnosis: otitis media, otitis externa, ruptured TM, foreign body, snw cerumen impaction. Data reviewed: vital signs, nurses notes. I considered the following discharge prescriptions or medication management in the emergency department Medications were administered in the Emergency Department. See MAR. Care significantly affected by the following chronic conditions: Hypertension, HIV, crohns. Administered Medications: 14:53 Drug: Amoxicillin-Clavulanate PO 875 mg PO once Route: PO; bp 14:53 Follow up: Response: No adverse reaction bp 14:53 Drug: predniSONE PO 40 mg PO once Route: PO; bp 14:53 Follow up: Response: No adverse reaction bp 14:53 Drug: Famotidine PO 20 mg PO once Route: PO; bp 14:53 Follow up: Response: No adverse reaction bp 14:53 Drug: ZyrTEC - Cetirizine PO 10 mg PO once Route: PO; bp 14:53 Follow up: Response: No adverse reaction bp Disposition Summary: 03/28/23 13:29 Discharge Ordered Notes: Location: Home snw Condition: Stable snw Diagnosis - Acute serous otitis media, right ear snw Followup: snw - With: Emergency Department - When: As needed - Reason: Worsening of condition Followup: snw - With: Private Physician - When: 1 week - Reason: Recheck today's complaints, Continuance of care, Re-evaluation by your physician Discharge Instructions: - Discharge Summary Sheet snw - Otitis Media, Adult snw Forms: - Medication Reconciliation Form snw - Thank You Letter snw - Antibiotic Education snw - Prescription Opioid Use snw - Patient Portal Instructions snw - Leadership Thank You Letter snw Prescriptions: - Augmentin 875-125 mg Oral Tablet - take 1 tablet ORAL route every 12 hours for 10 days; 20 tablet; Refills: 0, snw Product Selection Permitted - Zyrtec 10 mg Oral Tablet - take 1 tablet ORAL route once daily As needed; 20 tablet; Refills: 0, Product snw Selection Permitted - Prednisone 20 mg Oral Tablet - take 2 tablets ORAL route once daily for 5 days; 10 tablet; Refills: 0, Product snw Selection Permitted - Pepcid 20 mg Oral Tablet - take 1 tablet ORAL route once daily; 20 tablet; Refills: 0, Product Selection snw Permitted Addendum: 03/29/2023 19:46 Co-signature as Attending Physician, Suzi Ward MD I agree with the assessment and g b1 plan of care. I reviewed the patient's care provided by the Advanced Practice Provider and agree with the diagnosis and treatment plan. Signatures: Belem Parikh, ROMEROC DIGESTER HAND-Csnw Fannie Wright, RN RN iw Fredrick Garcia, RN RN bp Suzi Ward MD MD gb1
--- NOTE | 2023-03-28 13:30 | ER ---
Nurse's Notes [facility] Name: Erickson Allen Age: 33 yrs Sex: Male : 1990 Arrival Date: 03/28/2023 Time: 12:15 Bed IW9 Private MD: Diagnosis: Acute serous otitis media, right ear Presentation: 03/28 13:03 Chief complaint: Patient states: R EAR PAIN AND PRESSURE x2 WK. Coronavirus screen: At iw this time, the client does not indicate any symptoms associated with coronavirus-19. Ebola Screen: No symptoms or risks identified at this time. Initial Sepsis Screen: Does the patient meet any 2 criteria? No. Patient's initial sepsis screen is negative. Does the patient have a suspected source of infection? No. Patient's initial sepsis screen is negative. Risk Assessment: Do you want to hurt yourself or someone else? Patient reports no desire to harm self or others. Onset of symptoms is unknown. 13:03 Method Of Arrival: Ambulatory iw 13:03 Acuity: SARAH 5 iw Triage Assessment: 13:06 General: Appears in no apparent distress. Behavior is calm, cooperative, appropriate iw for age. Pain: Complains of pain in right ear. EENT: Reports pain in right ear. Historical: - Allergies: 13:06 No Known Drug Allergies; iw - PMHx: 13:06 Crohn's; HIV; iw - Immunization history:: Adult Immunizations up to date. - Social history:: Smoking status: Patient denies any tobacco usage or history of. Screenin:54 [facility] ED Fall Risk Assessment (Adult) History of falling in the last 3 months, bp including since admission No falls in past 3 months (0 pts). Abuse screen: Denies threats or abuse. Denies injuries from another. Nutritional screening: No deficits noted. Tuberculosis screening: No symptoms or risk factors identified. Vital Signs: 13:03 BP 136 / 100; Pulse 70; Resp 16; Temp 98; Pulse Ox 99% ; Weight 74.84 kg; Height 5 ft. iw 10 in. ; 13:03 Body Mass Index 23.67 (74.84 kg, 177.8 cm) iw ED Course: 12:16 Patient arrived in ED. rg4 13:06 Triage completed. iw 13:06 Arm band placed on. iw 13:26 Suzi Ward MD is Attending Physician. gb1 13:28 Belem Parikh FNP-C [facility] snw 14:54 Patient has correct armband on for positive identification. bp 14:54 No provider procedures requiring assistance completed. Patient did not have IV access bp during this emergency room visit. Administered Medications: 14:53 Drug: Amoxicillin-Clavulanate PO 875 mg PO once Route: PO; bp 14:53 Follow up: Response: No adverse reaction bp 14:53 Drug: predniSONE PO 40 mg PO once Route: PO; bp 14:53 Follow up: Response: No adverse reaction bp 14:53 Drug: Famotidine PO 20 mg PO once Route: PO; bp 14:53 Follow up: Response: No adverse reaction bp 14:53 Drug: ZyrTEC - Cetirizine PO 10 mg PO once Route: PO; bp 14:53 Follow up: Response: No adverse reaction bp Outcome: 13:29 Discharge ordered by . snw 14:54 Discharged to home ambulatory, bp 14:54 Condition: stable 14:54 Discharge instructions given to patient, Instructed on discharge instructions, follow up and referral plans. medication usage, Demonstrated understanding of instructions, follow-up care, medications, Prescriptions given X 4, 14:54 Patient left the ED. bp Signatures: Belem Parikh FNP-C [employer]-Csnw Fannie Wright, RN RN Dinorah Warner rg4 Fredrick Garcia, RN RN bp Sylvia, MD HUGH Archer gb1
[2023-03-28 16:00] VITALS: BP 136/100; TEMP 98; O2SAT 99
== END ==
LOC: ER 12:15
DX: H65.01 Acute serous otitis media, right ear (principal)
CPT/HCPCS: 99283; J7512

== ENCOUNTER 2024-02-19 08:50 | Emergency (ER) | payer BC ==
--- NOTE | 2024-02-19 09:04 | EDPHYS ---
Physician Documentation [facility] Name: Erickson Allen Age: 33 yrs Sex: Male : 1990 Arrival Date: 02/19/2024 Time: 08:50 Bed 16 Private MD: ED Physician Zia Schaeffer HPI: 02/18 09:03 This 33 yrs old Black Male presents to ER via Unassigned with complaints of Ear Pain. kb 09:03 Pt is a 33 year old male who presents for right ear pain that started one week ago and kb has gotten worse. Denies fever. . Historical: - Allergies: 09:02 No Known Allergies; ss - Home Meds: 09:02 Biktarvy oral [Active]; ss - PMHx: 09:02 Crohn's; HIV; ss - Immunization history:: Adult Immunizations up to date. - Infectious Disease History:: Denies. - Social history:: Smoking status: Patient denies any tobacco usage or history of. ROS: 09:02 Constitutional: As per HPI kb Exam: 09:02 Constitutional: This is a well developed, well nourished patient who is awake, alert, kb and in no acute distress. Head/Face: Normocephalic, atraumatic. Cardiovascular: Regular rate Respiratory: Respirations even and unlabored. No increased work of breathing. Talking in full sentences Skin: Warm, dry with normal turgor. Normal color. MS/ Extremity: Pulses equal, no cyanosis. Neurovascular intact. Full, normal range of motion. Neuro: Awake and alert, GCS 15, oriented to person, place, time, and situation. 09:02 ENT: External ear(s): are unremarkable, Ear canal(s): are normal, TM's: bulging, on the right, erythema, that is moderate, on the right, Vital Signs: 09:02 BP 155 / 94; Pulse 73; Resp 14; Temp 98(TE); Pulse Ox 100% on R/A; Weight 70.31 kg; ss Height 5 ft. 9 in. ; Pain 10/10; 09:16 BP 148 / 90; Pulse 75; Resp 16; Pulse Ox 99% ; ko1 09:02 Body Mass Index 22.89 (70.31 kg, 175.26 cm) ss 09:02 Pain Scale: Adult ss MDM: 08:58 Medical Screening Exam initiated kb 09:02 Differential diagnosis: otitis media, otitis externa, ruptured TM, foreign body, acute kb otalgia, cerumen impaction. Data reviewed: vital signs, nurses notes. Counseling: I had a detailed discussion with the patient and/or guardian regarding the historical points, exam findings, and any diagnostic results supporting the discharge/admit diagnosis, the need for outpatient follow up, a family practitioner, to return to the emergency department if symptoms worsen or persist or if there are any questions or concerns that arise at home. Administered Medications: 09:12 Drug: Amoxicillin-Clavulanate PO 875 mg PO once Route: PO; ko1 09:17 Follow up: Response: Medication administered at discharge. ko1 Disposition Summary: 02/19/24 09:03 Discharge Ordered Notes: Location: Home kb Condition: Stable kb Diagnosis - Otitis media, unspecified, left ear kb Followup: kb - With: Private Physician - When: 2 - 3 days - Reason: Recheck today's complaints, Continuance of care, Re-evaluation by your physician Followup: kb - With: Emergency Department - When: As needed - Reason: Worsening of condition Discharge Instructions: - Discharge Summary Sheet kb - Otitis Media, Adult, [id number] kb Forms: - Medication Reconciliation Form kb - Antibiotic Education kb - Prescription Opioid Use kb - Patient Portal Instructions kb - Leadership Thank You Letter kb - Work release form sp Prescriptions: - Amoxicillin 875 mg Oral Tablet - take 1 tablet ORAL route every 12 hours for 10 days; 20 tablet; Refills: 0, kb Product Selection Permitted Signatures: Gay Rehman, NAILA ARORA-Angelique Estevez, RN RN Candy Lopez, MARINA RN ko1
[2024-02-19] MEDS ORDERED: AMOX/K CLAV 875 MG TAB ONE (09:13)
--- NOTE | 2024-02-19 09:19 | ER ---
Nurse's Notes [facility] Name: Erickson Allen Age: 33 yrs Sex: Male : 1990 Arrival Date: 02/19/2024 Time: 08:50 Bed 16 Private MD: Diagnosis: Otitis media, unspecified, left ear Presentation: 02/18 09:07 Chief complaint: Patient states: R ear pain. HX of frequent ear infections. Coronavirus ss screen: Client denies travel out of the [place] in the last 14 days. Ebola Screen: Patient denies exposure to infectious person. Patient denies travel to an Ebola-affected area in the 21 days before illness onset. Initial Sepsis Screen: Does the patient meet any 2 criteria? No. Patient's initial sepsis screen is negative. Does the patient have a suspected source of infection? No. Patient's initial sepsis screen is negative. Risk Assessment: Do you want to hurt yourself or someone else? Patient reports no desire to harm self or others. Onset of symptoms is unknown. 09:07 Method Of Arrival: Ambulatory ss 09:07 Acuity: SARAH 4 ss Historical: - Allergies: 09:02 No Known Allergies; ss - Home Meds: 09:02 Biktarvy oral [Active]; ss - PMHx: 09:02 Crohn's; HIV; ss - Immunization history:: Adult Immunizations up to date. - Infectious Disease History:: Denies. - Social history:: Smoking status: Patient denies any tobacco usage or history of. Screenin:16 [facility] ED Fall Risk Assessment (Adult) History of falling in the last 3 months, ko1 including since admission No falls in past 3 months (0 pts) Confusion or Disorientation No (0 pts) Intoxicated or Sedated No (0 pts) Impaired Gait No (0 pts) Mobility Assist Device Used No (0 pt) Altered Elimination No (0 pt) Score/Fall Risk Level 0 - 2 = Low Risk Oriented to surroundings, Maintained a safe environment, Educated pt \T\ family on fall prevention, incl call for assistance when getting out of bed, Assessed \T\ reinforced patient's understanding of fall precautions. Abuse screen: Denies threats or abuse. Denies injuries from another. Nutritional screening: No deficits noted. Tuberculosis screening: No symptoms or risk factors identified. Assessment: 09:05 General: Appears uncomfortable, Behavior is calm, cooperative, appropriate for age. ko1 Pain: Complains of pain in right ear. Neuro: No deficits noted. Cardiovascular: No deficits noted. Respiratory: No deficits noted. GI: No deficits noted. : No deficits noted. EENT: Reports pain in right ear when swallowing. Derm: No deficits noted. Musculoskeletal: No deficits noted. Vital Signs: 09:02 BP 155 / 94; Pulse 73; Resp 14; Temp 98(TE); Pulse Ox 100% on R/A; Weight 70.31 kg; ss Height 5 ft. 9 in. ; Pain 10/10; 09:16 BP 148 / 90; Pulse 75; Resp 16; Pulse Ox 99% ; ko1 09:02 Body Mass Index 22.89 (70.31 kg, 175.26 cm) ss 09:02 Pain Scale: Adult ss ED Course: 08:55 Patient arrived in ED. mr 08:56 Candy Lopez RN is Primary Nurse. ko1 08:58 Gay Rehman [facility]NP-C [facility]. kb 08:58 Zia Schaeffer MD is Attending Physician. kb 09:02 Arm band placed on right wrist. ss 09:08 Triage completed. ss 09:16 Patient has correct armband on for positive identification. Bed in low position. Call ko1 light in reach. Provided Education on: meds. Pulse ox on. NIBP on. Door closed. Noise minimized. Lights dimmed. 09:16 No provider procedures requiring assistance completed. Patient did not have IV access ko1 during this emergency room visit. Administered Medications: 09:12 Drug: Amoxicillin-Clavulanate PO 875 mg PO once Route: PO; ko1 09:17 Follow up: Response: Medication administered at discharge. ko1 Medication: 09:16 VIS not applicable for this client. ko1 Outcome: 09:03 Discharge ordered by . kb 09:16 Discharged to home ambulatory, ko1 09:16 Condition: stable 09:16 Discharge instructions given to patient, Instructed on discharge instructions, follow up and referral plans. medication usage, Demonstrated understanding of instructions, follow-up care, medications, Prescriptions given X 1, 09:18 Patient left the ED. ko1 Signatures: Gay Rehman FNP-C FNP-Shonna Canales, Reg Reg mr Angelique German, RN RN ss Candy Lopez, RN RN ko1
[2024-02-19 11:25] VITALS: TEMP 98
[2024-02-19 11:26] VITALS: BP 148/90; O2SAT 99
== END 2024-02-19 09:18 | disposition home or self-care (01) ==
LOC: ER 08:50
DX: H66.91 Otitis media, unspecified, right ear (principal)
CPT/HCPCS: 99283